=== PATIENT | female | born 1990 | race African-American/Black ===

== ENCOUNTER 2017-02-05 18:48 | Emergency (ER) | payer SELFPAY ==
[~2017-02-05] VITALS: Ht 157.5 cm; Wt 58.3 kg
[2017-02-05 18:50] VITALS: BP 109/77
[2017-02-05] MEDS ORDERED: ZOFR4TAB3 PO (21:58)
[2017-02-05] MEDS ORDERED: CLAR1TAB2 PO (21:58)
== END 2017-02-05 22:04 | disposition home or self-care (01) ==
LOC: M ED 18:48
DX: J30.2 Other seasonal allergic rhinitis (principal); R11.0 Nausea; N92.1 Excessive and frequent menstruation with irregular cycle